=== PATIENT | male | born 1950 | race Hispanic/Latino ===

== ENCOUNTER 2019-07-26 12:59 | Emergency (ER) | payer MEDICARE, OTHER ==
[2019-07-26] MEDS ORDERED: HYDROCODONE/APAP 5/325 MG TAB ONE (14:29)
--- NOTE | 2019-07-26 16:05 | RAD REPORT ---
EXAM DESCRIPTION: RAD - Knee Right 3 View - 07/26/2019 3:12 pm CLINICAL HISTORY: Right knee pain FINDINGS: No fracture or dislocation is seen. Moderate osteoarthritis medial compartment consisting joint space narrowing and osteophytes A moderate to large joint effusion is present. The bones are osteoporotic
--- NOTE | 2019-07-26 16:12 | EDPHYS ---
Physician Documentation [facility] Name: Ruy Lainez Age: 69 yrs Sex: Male : 1950 Arrival Date: 07/26/2019 Time: 13:05 Bed 12 Private MD: ED Physician Eliot Pathak HPI: 07/25 16:11 This 69 yrs old Male presents to ER via Ambulatory with complaints of Right pm1 knee pain. 16:11 The complaints affect the right knee. Context: resulted from arthritis, the patient can pm1 partially bear weight, the patient is able to ambulate. Onset: The symptoms/episode began/occurred chronic pain worse since yesterday. Modifying factors: the symptoms are aggravated by weight bearing. Associated signs and symptoms: Pertinent negatives calf tenderness, fever, numbness, swelling, tingling. Treatment prior to arrival includes: no previous treatment. Severity of symptoms: in the emergency department the symptoms are actually worse. Patient with chronic knee pain and usually gets steroid injections to his knee when he has a flare up of pain. Historical: - Allergies: 13:27 No Known Allergies; ss - Home Meds: 13:27 None [Active]; ss - PMHx: 13:27 None; ss - Immunization history:: Adult Immunizations unknown. - Social history:: Smoking status: Patient denies any tobacco usage or history of. ROS: 16:11 Constitutional: Negative for fever, chills, and weight loss, Cardiovascular: Negative pm1 for chest pain, palpitations, and edema, Respiratory: Negative for shortness of breath, cough, wheezing, and pleuritic chest pain, Abdomen/GI: Negative for abdominal pain, nausea, vomiting, diarrhea, and constipation, Back: Negative for injury and pain. 16:11 Skin: Negative for injury, rash, and discoloration, Neuro: Negative for headache, weakness, numbness, tingling, and seizure. 16:11 MS/extremity: Positive for pain, swelling, of the right knee, Negative for decreased range of motion, deformity. Exam: 16:11 Constitutional: This is a well developed, well nourished patient who is awake, alert, pm1 and in no acute distress. Head/Face: Normocephalic, atraumatic. Neck: Trachea midline, no thyromegaly or masses palpated, and no cervical lymphadenopathy. Supple, full range of motion without nuchal rigidity, or vertebral point tenderness. No Meningismus. Chest/axilla: Normal chest wall appearance and motion. Nontender with no deformity. No lesions are appreciated. 16:11 Skin: Warm, dry with normal turgor. Normal color with no rashes, no lesions, and no evidence of cellulitis. MS/ Extremity: Pulses equal, no cyanosis. Neurovascular intact. Full, normal range of motion. 16:11 Cardiovascular: Exam negative for acute changes, Rate: normal, Rhythm: regular, Pulses: no pulse deficits are appreciated, Edema: is not appreciated. 16:11 Respiratory: Exam negative for acute changes, respiratory distress, shortness of breath. 16:11 Musculoskeletal/extremity: Extremities: grossly normal except: noted in the right knee: pain, swelling, There is no evidence of decreased ROM, deformity, erythema. 16:11 Neuro: Exam negative for acute changes, Orientation: is normal, Mentation: is normal, Motor: is normal, moves all fours. Vital Signs: 13:26 BP 158 / 77; Pulse 58; Resp 18; Temp 97.6; Pulse Ox 97% on R/A; ss MDM: 14:09 Patient medically screened. pm1 16:11 Data reviewed: vital signs. Data interpreted: Pulse oximetry: on room air is 97 %. pm1 Interpretation: normal. Counseling: I had a detailed discussion with the patient and/or guardian regarding: the historical points, exam findings, and any diagnostic results supporting the discharge/admit diagnosis, the need for outpatient follow up, for definitive care, a orthopedic surgeon, to return to the emergency department if symptoms worsen or persist or if there are any questions or concerns that arise at home. 07/25 14:09 Order name: Knee Right 3 View XRAY; Complete Time: 16:11 pm1 07/25 16:11 Order name: Rip wrap-joint; Complete Time: 16:16 pm1 Administered Medications: 14:23 Drug: [place] 5 mg-325 mg 1 tabs Route: PO; ss Disposition: 19:41 Co-signature as Attending Physician, Eliot Pathak MD. mh7 Disposition: 07/26/19 16:12 Discharged to Home. Impression: Pain in right knee. - Condition is Stable. - Discharge Instructions: Joint Pain, Arthritis, Knee Pain. - Prescriptions for Tramadol 50 mg Oral Tablet - take 1 tablet by ORAL route every 8 hours as needed; 12 tablet. - Medication Reconciliation Form, Thank You Letter, Antibiotic Education, Prescription Opioid Use form. - Follow up: Emergency Department; When: As needed; Reason: Worsening of condition. Follow up: Private Physician; When: 2 - 3 days; Reason: Recheck today's complaints, Continuance of care, Re-evaluation by your physician. - Problem is new. - Symptoms have improved. Signatures: Dispatcher [employer] EDMS Sissy Pena RN RN ss Denny Dent NP DOG BOARDER pm1 Eliot Pathak MD MD mh7 Corrections: (The following items were deleted from the chart) 16:18 16:11 The patient presents with pain, pm1 pm1 16:24 16:12 07/26/2019 16:12 Discharged to Home. Impression: Pain in right knee. Condition is ss Stable. Forms are Medication Reconciliation Form, Thank You Letter, Antibiotic Education, Prescription Opioid Use. Follow up: Emergency Department; When: As needed; Reason: Worsening of condition. Follow up: Private Physician; When: 2 - 3 days; Reason: Recheck today's complaints, Continuance of care, Re-evaluation by your physician. Problem is new. Symptoms have improved. pm1
--- NOTE | 2019-07-26 16:12 | ER ---
Nurse's Notes [facility] Name: Ruy Lainez Age: 69 yrs Sex: Male : 1950 Arrival Date: 07/26/2019 Time: 13:05 Bed 12 Private MD: Diagnosis: Pain in right knee Presentation: 07/25 13:26 Chief complaint: Patient states: R knee pain and swelling since yesterday, hx of knee ss problems and has had cortisone injections in the past, denies injury. Coronavirus screen: Patient denies a cough. Patient denies shortness of breath or difficulty breathing. Patient denies measured and/or subjective temperature greater than 100.4F prior to today's visit. Patient denies travel on a cruise ship or to a country the [facility] currently lists as an affected area. Patient denies contact with known and/or suspected case of COVID-19. Ebola Screen: No symptoms or risks identified at this time. Initial Sepsis Screen: Does the patient meet any 2 criteria? No. Patient's initial sepsis screen is negative. Does the patient have a suspected source of infection? No. Patient's initial sepsis screen is negative. Risk Assessment: Do you want to hurt yourself or someone else? Patient reports no desire to harm self or others. Onset of symptoms was July 26, 2019. 13:26 Method Of Arrival: Ambulatory ss 13:26 Acuity: DARRIUS 4 ss Historical: - Allergies: 13:27 No Known Allergies; ss - Home Meds: 13:27 None [Active]; ss - PMHx: 13:27 None; ss - Immunization history:: Adult Immunizations unknown. - Social history:: Smoking status: Patient denies any tobacco usage or history of. Screenin:24 Abuse screen: Denies threats or abuse. Denies injuries from another. Nutritional ph screening: No deficits noted. Tuberculosis screening: No symptoms or risk factors identified. Fall Risk None identified. Assessment: 14:23 General: Appears in no apparent distress. comfortable, well groomed, Behavior is calm, ph cooperative, appropriate for age, Denies fever. Pain: Complains of pain in right knee. Neuro: Level of Consciousness is awake, alert, obeys commands, Oriented to person, place, time, situation. Cardiovascular: Capillary refill < 3 seconds in bilateral fingers Patient's skin is warm and dry. Respiratory: Airway is patent Respiratory effort is even, unlabored. Derm: Skin is intact, is healthy with good turgor, Skin is pink, warm \T\ dry. Musculoskeletal: Circulation, motion, and sensation intact. Range of motion: intact in all extremities, Swelling present in right knee. 16:00 Reassessment: Patient appears in no apparent distress at this time. No changes from previously documented assessment. Vital Signs: 13:26 BP 158 / 77; Pulse 58; Resp 18; Temp 97.6; Pulse Ox 97% on R/A; ss ED Course: 13:05 Patient arrived in ED. mr 13:27 Triage completed. ss 13:27 Arm band placed on Patient placed in waiting room, Patient notified of wait time. ss 13:57 Denny Dent NP is PHCP. pm1 13:57 Eliot Pathak MD is Attending Physician. pm1 14:20 Sissy Pena RN is Primary Nurse. 14:25 Patient has correct armband on for positive identification. Bed in low position. Call ph light in reach. Door closed. Noise minimized. Warm blanket given. 15:12 Knee Right 3 View XRAY In Process Unspecified. EDDE 16:15 TRANSLATE. Rip wrap to right knee. 5 16:21 Patient did not have IV access during this emergency room visit. ss Administered Medications: 14:23 Drug: [place] 5 mg-325 mg 1 tabs Route: PO; Outcome: 16:12 Discharge ordered by . pm1 16:21 Discharged to home ambulatory. 16:21 Condition: good 16:21 Demonstrated understanding of instructions, follow-up care, medications. 16:24 Patient left the ED. Signatures: Dispatcher [employer] EDDE Ragini Balderas Sissy Pena, AVA RN Neelam Trent RN RN Denny Dent NP RUMPER pm1 Denia Bryant [facility]
[2019-07-26 16:30] VITALS: BP 158/77; TEMP 97.6; O2SAT 97
== END 2019-07-26 16:24 | disposition home or self-care (01) ==
LOC: ER 12:59
DX: M25.561 Pain in right knee (principal)
CPT/HCPCS: 99283

== ENCOUNTER 2020-05-14 10:35 | Emergency (ER) | payer OTHER ==
--- OUTSIDE RECORDS SUMMARY | 2020-05-14 10:37 | XMS REPORT | Continuity of Care Document ---
:1950 Author Organization [facility] t Address [address] [place] [address] Care Team Providers Name Role Phone Unavailable Unavailable Unavailable Problems Condition Condition Condition Status Onset Resolution Last Treating Co mments Source Name Details Category Date Date Treatment Clinician Date BMI BMI Problem Active [facility] 31.0-31.9, 31.0-31.9, Kristie kes - adult adult [facility] Primary Primary Diagnosis [facility] osteoarthr osteoarthr Kristie kes - [facility] right knee right knee [facility] Other Other Problem Active [facility] chronic chronic [facility] pain pain [facility] Right knee Right knee Diagnosis Active [facility] pain pain [facility] Allergies, Adverse Reactions, Alerts This patient has no known allergies or adverse reactions. Medications Ordered Filled Start Stop Current Ordering Indication Dosage Frequency Signature Comments Components Source Medication Medication Date Date Medication? Clinician (SIG) Name Name Tylenol Tylenol Yes Rogelio not [facility] Arthritis Arthritis 7-16 Pearl defined Kristie kes - Pain Pain 00:00: Memoria 00 [facility] Tramadol Tramadol Yes Rogelio not [facility] HCl HCl Pearl defined [facility] Suprep Suprep Yes Rogelio not [facility] Bowel Prep Bowel Prep Pearl defined [facility] - Kit Kit [facility] Procedures This patient has no known procedures. Encounters Start End Encounter Admission Attending Care Care Encounter Source Date/Time Date/Time Type Type Clinicians Facility Department ID 2019-10-04 2019-10-04 [facility] [id number] [facility] 09[facility]30[facility]00 09:30[facility]00 [facility] 2019-09-27 2019-09-27 Outpatient Jagruti Marques [id number] [facility] 09:30:00 09:30:00 t [facility] 2019-09-21 2019-09-21 Outpatient Jagruti Marques [id number] [facility] 09:00:00 09:00:00 t [facility] 2019-09-08 2019-09-08 Outpatient Jagruti Marques [id number] [facility] 15:30:00 15:30:00 t [facility] 2019-09-07 2019-09-07 Outpatient Jagruti Marques [id number] [facility] 16:10:00 16:10:00 t [facility] 2019-08-29 2019-08-29 Outpatient Jagruti Marques [id number] [facility] 13:30:00 13:30:00 t [employer] [facility] ent Clinics Results This patient has no known results.
--- NOTE | 2020-05-14 11:06 | EDPHYS ---
Physician Documentation [facility] Name: Ruy Lainez Age: 70 yrs Sex: Male : 1950 Arrival Date: 05/14/2020 Time: 10:38 Bed 15 Private MD: William [facility] ED Physician Murray Gutierrez HPI: 05/14 11:00 This 70 yrs old Male presents to ER via Ambulatory with complaints of neck rn pain. 11:00 The patient or guardian complains of decreased range of motion, pain. The symptoms are rn located on the left neck/posterior. 11:01 Onset: The symptoms/episode began/occurred 3 day(s) ago. Associated signs and symptoms: rn Pertinent negatives: chills, fever, headache, bladder incontinence, bowel incontinence, numbness, tingling, weakness. The pain does not radiate. Modifying factors: The symptoms are alleviated by remaining still, the symptoms are aggravated by movement. Severity of symptoms: At their worst the symptoms were moderate, in the emergency department the symptoms are unchanged. The patient has not experienced similar symptoms in the past. The patient has not recently seen a physician. Historical: - Allergies: 10:52 No Known Allergies; ll1 - PMHx: 10:52 None; ll1 - PSHx: 10:52 colon sx; ll1 - Immunization history:: Flu vaccine is not up to date. - Social history:: Smoking status: Patient denies any tobacco usage or history of. - Family history:: not pertinent. - Hospitalizations: : No recent hospitalization is reported. ROS: 11:01 Constitutional: Negative for fever, chills, and weight loss, Eyes: Negative for injury, rn pain, redness, and discharge, ENT: Negative for injury, pain, and discharge, Neck: Negative for injury, and swelling, Cardiovascular: Negative for chest pain, palpitations, and edema, Respiratory: Negative for shortness of breath, cough, wheezing, and pleuritic chest pain, Abdomen/GI: Negative for abdominal pain, nausea, vomiting, diarrhea, and constipation, Back: Negative for injury and pain, MS/Extremity: Negative for injury and deformity, Skin: Negative for injury, rash, and discoloration, Neuro: Negative for headache, weakness, numbness, tingling, and seizure. Exam: 11:01 Constitutional: This is a well developed, well nourished patient who is awake, alert, rn and in no acute distress. Head/Face: Normocephalic, atraumatic. Eyes: Pupils equal round and reactive to light Neck: Trachea midline, no masses palpated, and no cervical lymphadenopathy. equal carotid pulses bilaterally. + pain with turning head left, tenderness along left SCM, no crepitus, no skin changes. Cardiovascular: Regular rate and rhythm. No pulse deficits. Respiratory: No increased work of breathing, no retractions or nasal flaring. Abdomen/GI: soft, non-tender Skin: Warm, dry, no rashes MS/ Extremity: Pulses equal, no cyanosis. Neurovascular intact. Full, normal range of motion. Equal circumference. Neuro: Awake and alert, GCS 15, oriented to person, place, time, and situation. Cranial nerves II-XII grossly intact. Motor strength 5/5 in all extremities. Sensory grossly intact. Cerebellar exam normal. Normal gait. Vital Signs: 10:50 BP 167 / 94; Pulse 64; Resp 17; Temp 98.1; Pulse Ox 97% on R/A; Pain 8/10; ll1 MDM: 10:53 Patient medically screened. rn 11:01 Differential diagnosis: arthritis, Cervical Raiculopathy cervical strain, torticollis. rn Data reviewed: vital signs, nurses notes, and as a result, I will discharge patient. Counseling: I had a detailed discussion with the patient and/or guardian regarding: the historical points, exam findings, and any diagnostic results supporting the discharge/admit diagnosis, the need for outpatient follow up, to return to the emergency department if symptoms worsen or persist or if there are any questions or concerns that arise at home. Special discussion: I discussed with the patient/guardian in detail that at this point there is no indication for admission to the hospital. It is understood, however, that if the symptoms persist or worsen the patient needs to return immediately for re-evaluation. ED course: Normal neuro exam, no chest pain, no radiation, seems muscular in nature, afebrile, will dc home with muscle relaxer and steroids, with return precautions. . Administered Medications: Drug: TORadol - Ketorolac 15 mg Route: IM; Site: right deltoid; 11:29 Follow up: Response: No adverse reaction jl7 11:18 Drug: Decadron 10 mg Route: IM; Site: left deltoid; jl7 11:29 Follow up: Response: No adverse reaction jl7 Disposition: 05/14/20 11:06 Discharged to Home. Impression: Torticollis, Muscle spasm. - Condition is Stable. - Discharge Instructions: Muscle Cramps and Spasms, Acute Torticollis, Adult. - Prescriptions for Cyclobenzaprine 10 mg Oral Tablet - take 1 tablet by ORAL route every 8 hours As needed; 15 tablet. Medrol ([place]) 4 mg Oral Tablets, Dose Pack - take 1 tablet by ORAL route as directed - follow package instructions; 1 packet. - Medication Reconciliation Form, Thank You Letter, Antibiotic Education, Prescription Opioid Use form. - Follow up: Private Physician; When: As needed; Reason: Recheck today's complaints, Re-evaluation by your physician. - Problem is new. - Symptoms have improved. Signatures: Murray Gutierrez MD MD rn Leal, AVA Vides RN jl7 Gail Parra RN RN ll1 Corrections: (The following items were deleted from the chart) 11:05 11:01 Constitutional: This is a well developed, well nourished patient who is awake, rn alert, and in no acute distress. Head/Face: Normocephalic, atraumatic. Eyes: Pupils equal round and reactive to light Neck: Trachea midline, no masses palpated, and no cervical lymphadenopathy. + pain with turning head left, tenderness along left SCM, no crepitus, no skin changes. Cardiovascular: Regular rate and rhythm. No pulse deficits. Respiratory: No increased work of breathing, no retractions or nasal flaring. Abdomen/GI: soft, non-tender Skin: Warm, dry, no rashes MS/ Extremity: Pulses equal, no cyanosis. Neurovascular intact. Full, normal range of motion. Equal circumference. Neuro: Awake and alert, GCS 15, oriented to person, place, time, and situation. Cranial nerves II-XII grossly intact. Motor strength 5/5 in all extremities. Sensory grossly intact. Cerebellar exam normal. Normal gait. rn 11:29 11:06 05/14/2020 11:06 Discharged to Home. Impression: Torticollis; Muscle spasm. jl7 Condition is Stable. Forms are Medication Reconciliation Form, Thank You Letter, Antibiotic Education, Prescription Opioid Use. Follow up: Private Physician; When: As needed; Reason: Recheck today's complaints, Re-evaluation by your physician. Problem is new. Symptoms have improved. rn
--- NOTE | 2020-05-14 11:06 | ER ---
Nurse's Notes [facility] Name: Ruy Lainez Age: 70 yrs Sex: Male : 1950 Arrival Date: 05/14/2020 Time: 10:38 Bed 15 Private MD: Riaz Thomas Diagnosis: Torticollis;Muscle spasm Presentation: 05/14 10:50 Chief complaint: Patient states: L sided neck pain and CELAYA for 3 days. Pain increases to ll1 neck area with certain movements. No trauma or falls. No fever or cough. Coronavirus screen: Client denies travel out of the [place] in the last 14 days. At this time, the client does not indicate any symptoms associated with coronavirus-19. Ebola Screen: Patient denies travel to an Ebola-affected area in the 21 days before illness onset. Initial Sepsis Screen: Does the patient meet any 2 criteria? No. Patient's initial sepsis screen is negative. Does the patient have a suspected source of infection? Yes: Other: CELAYA/neck pain. Risk Assessment: Do you want to hurt yourself or someone else? Patient reports no desire to harm self or others. Onset of symptoms was May 12, 2020. 10:50 Method Of Arrival: Ambulatory ll1 10:50 Acuity: DARRIUS 3 ll1 Historical: - Allergies: 10:52 No Known Allergies; ll1 - PMHx: 10:52 None; ll1 - PSHx: 10:52 colon sx; ll1 - Immunization history:: Flu vaccine is not up to date. - Social history:: Smoking status: Patient denies any tobacco usage or history of. - Family history:: not pertinent. - Hospitalizations: : No recent hospitalization is reported. Screenin:20 Abuse screen: Denies threats or abuse. Denies injuries from another. Nutritional jl7 screening: No deficits noted. Tuberculosis screening: No symptoms or risk factors identified. Fall Risk None identified. Assessment: 11:15 General: Appears in no apparent distress. uncomfortable, Behavior is calm, cooperative, jl7 appropriate for age. Pain: Complains of pain in CELAYA and neck Pain currently is 8 out of 10 on a pain scale. Neuro: Level of Consciousness is awake, alert, obeys commands. Cardiovascular: Patient's skin is warm and dry. Respiratory: Airway is patent Respiratory effort is even, unlabored, Respiratory pattern is regular, symmetrical. Derm: Skin is pink, warm \T\ dry. 11:20 Reassessment: Pt will be discharged after shot time. jl7 Vital Signs: 10:50 BP 167 / 94; Pulse 64; Resp 17; Temp 98.1; Pulse Ox 97% on R/A; Pain 8/10; ll1 ED Course: 10:38 Patient arrived in ED. mr 10:39 Riaz Thomas DO is Private Physician. mr 10:49 Arm band placed on Patient placed in an exam room, on a stretcher. ll1 10:52 Triage completed. ll1 10:53 Murray Gutierrez MD is Attending Physician. rn 11:00 Peewee Phipps RN is Primary Nurse. jl7 11:20 Patient has correct armband on for positive identification. Bed in low position. Call jl7 light in reach. Side rails up X 1. 11:20 No provider procedures requiring assistance completed. Patient did not have IV access jl7 during this emergency room visit. Administered Medications: 11:18 Drug: TORadol - Ketorolac 15 mg Route: IM; Site: right deltoid; jl7 11:29 Follow up: Response: No adverse reaction jl7 11:18 Drug: Decadron 10 mg Route: IM; Site: left deltoid; jl7 11:29 Follow up: Response: No adverse reaction jl7 Outcome: 11:06 Discharge ordered by . rn 11:28 Discharged to home ambulatory. jl7 11:28 Condition: stable 11:28 Discharge instructions given to patient, Instructed on discharge instructions, follow up and referral plans. medication usage, Demonstrated understanding of instructions, follow-up care, medications, Prescriptions given X 2. 11:29 Patient left the ED. jl7 Signatures: Ragini Balderas Murray Gutierrez MD MD rn Leal, Jahala, RN RN jl7 Gail Parra RN RN ll1
[2020-05-14] MEDS ORDERED: dexAMETHasone 10 MG/ML VIAL ONE (11:19)
[2020-05-14] MEDS ORDERED: KETOROLAC 30 MG/ML INJ ONE (11:20)
[2020-05-14 11:34] VITALS: BP 167/94; TEMP 98.1; O2SAT 97
== END 2020-05-14 11:29 | disposition home or self-care (01) ==
LOC: ER 10:35
DX: M43.6 Torticollis (principal); M62.838 Other muscle spasm
CPT/HCPCS: 96372; 99283; J1100

== ENCOUNTER 2020-10-10 08:43 | Emergency (ER) | payer OTHER ==
--- OUTSIDE RECORDS SUMMARY | 2020-10-10 08:45 | XMS REPORT | Continuity of Care Document ---
:[address] [facility] t Address [address] [place] [address] Care Team Providers Name Role Phone Unavailable Unavailable Unavailable Problems This patient has no known problems. Allergies, Adverse Reactions, Alerts This patient has no known allergies or adverse reactions. Medications Ordered Filled Start Stop Current Ordering Indication Dosage Frequency Signature Comments Components Source Medication Medication Date Date Medication? Clinician (SIG) Name Name Tylenol Tylenol Yes Rogelio not [facility] Arthritis Arthritis 7-16 Pearl defined Kristie kes - [facility] Tramadol Tramadol Yes Rogelio not [facility] HCl HCl [facility] defined [facility] Suprep Suprep Yes Rogelio not [facility] Bowel Prep Bowel Prep Pearl defined [facility] Procedures This patient has no known procedures. Encounters Start End Encounter Admission Attending Care Care Encounter Source Date/Time Date/Time Type Type Clinicians Facility Department ID 2020-09-17 2020-09-17 Outpatient [facility] [id number] [facility] 2020-06-18 2020-06-18 Outpatient [facility] [id number] [facility] 2020-06-18 2020-06-18 Outpatient [facility] [id number] [facility] 2020-06-18 2020-06-18 Outpatient [facility] [id number] [facility] 2020-06-06 2020-06-06 Outpatient [facility] [id number] [facility] 2019-10-04 2019-10-04 [facility] [id number] [facility] 09:30:00 09:30:00 [facility] 2019-09-27 2019-09-27 [facility] [id number] [facility] 09:30:00 09:30:00 [facility] 2019-09-21 2019-09-21 [facility] [id number] [facility] 09:00:00 09:00:00 [facility] 2019-09-08 2019-09-08 [facility] [id number] [facility] 15:30:00 15:30:00 [facility] 2019-09-07 2019-09-07 [facility] [id number] [facility] 16:10:00 16:10:00 [facility] 2019-08-29 2019-08-29 [facility] [id number] [facility] 13:30:00 13:30:00 t [facility] Clinics Results This patient has no known results.
--- NOTE | 2020-10-10 10:13 | RAD REPORT ---
EXAM DESCRIPTION: US - Abdomen Exam Limited - 10/10/2020 10:02 am CLINICAL HISTORY: RUQ abd pain COMPARISON: No comparisons FINDINGS: The gallbladder demonstrates no gallstones. No pericholecystic fluid or gallbladder wall t hickening. The common bile duct is normal measuring 5 millimeter. The liver demonstrates no findings of intrahepatic biliary dilatation. IMPRESSION: Negative for cholelithiasis or acute cholecystitis.
--- NOTE | 2020-10-10 12:08 | RAD REPORT ---
EXAM DESCRIPTION: CT - Abdomen Pelvis Wo Contrast - 10/10/2020 11:58 am CLINICAL HISTORY: Abdominal pain. RUQ pain COMPARISON: Abdomen Exam Limited dated 10/10/2020 TECHNIQUE: CT imaging of the abdomen and pelvis was performed without contrast. Solid organ, bowel a nd vascular assessment is limited due to lack of IV and oral contrast. All CT scans are performed using dose optimization technique as appropriate and may include automated exposure control or mA/KV adjustment according to patient size. FINDINGS: The lower lung hills are clear. The liver, spleen, pancreas, adrenal glands and kidneys are within normal limits for a limited non-co ntrast examination. No bowel obstruction, free air, free fluid or abscess. Appendix not identified. Moderate stool in th e colon. The osseous structures are within normal limits. IMPRESSION: No acute intra-abdominal or pelvic findings. A limited non-contrast examination was performed as detailed.
[2020-10-10] MEDS ORDERED: MAGNES/ALUMIN/SIMET 30ML UCUP ONE (12:57)
[2020-10-10] MEDS ORDERED: LIDOCAINE VISCOUS 2% SOLN 15 ML UDC ONE (12:57)
[2020-10-10 13:22] LABS: Absolute Lymphocytes (CBC) 2.9 K/uL (0.7-4.9); Basophils % 1.4 % (0-1.3); Hematocrit 41.4 % (39.6-49.0); Lymphocytes % 39.1 % (15.3-44.8); MPV 10.3 fL (7.6-11.3); RBC Red Blood Cell Count 4.42 M/uL (4.33-5.43)
[2020-10-10 13:47] LABS: ALT/SGPT 35 U/L (12-78); AST/SGOT 21 U/L (15-37); Alkaline Phosphatase 112 U/L (45-117); BUN Blood Urea Nitrogen 19 mg/dL (7-18); Bicarbonate 28 mmol/L (21-32); Bilirubin Direct 0.1 mg/dL (0-0.2); Bilirubin Total 0.4 mg/dL (0.2-1.0); Glucose Level 103 mg/dL (74-106); Lipase 60 U/L (73-393); Potassium 4.3 mmol/L (3.5-5.1); Protein, Total 7.6 g/dL (6.4-8.2); Sodium Level 140 mmol/L (136-145)
--- NOTE | 2020-10-10 14:19 | ER ---
Nurse's Notes [facility] Name: Ruy Lainez Age: 70 yrs Sex: Male : 1950 Arrival Date: 10/10/2020 Time: 08:48 Bed Treatment Private MD: Riaz Thomas Diagnosis: Abdominal pain, unspecified Presentation: 10/10 09:08 Chief complaint: Patient states: RUQ pain that began last night. Denies N/V/D. ss Coronavirus screen: Client denies travel out of the [place] in the last 14 days. Ebola Screen: Patient denies exposure to infectious person. Patient denies travel to an Ebola-affected area in the 21 days before illness onset. Initial Sepsis Screen: Does the patient meet any 2 criteria? No. Patient's initial sepsis screen is negative. Does the patient have a suspected source of infection? No. Patient's initial sepsis screen is negative. Risk Assessment: Do you want to hurt yourself or someone else? Patient reports no desire to harm self or others. Onset of symptoms was October 09, 2020. 09:08 Method Of Arrival: Ambulatory 09:08 Acuity: DARRIUS 3 ss Historical: - Allergies: 09:10 No Known Allergies; ss - PMHx: 09:10 High cholesterol; ss - PSHx: 09:10 None; ss - Immunization history:: Adult Immunizations up to date, Client reports receiving the 2nd dose of the Covid vaccine. - Social history:: Smoking status: Patient denies any tobacco usage or history of. - Family history:: not pertinent. - Hospitalizations: : No recent hospitalization is reported. Screenin:16 Abuse screen: Denies threats or abuse. Denies injuries from another. Nutritional iw screening: No deficits noted. Tuberculosis screening: No symptoms or risk factors identified. Fall Risk None identified. Assessment: 11:46 Reassessment: pt transferred to PA via wheelchair. tr6 Vital Signs: 09:08 BP 156 / 83; Pulse 50; Resp 16; Temp 97.6(TE); Pulse Ox 96% on R/A; Weight 72.57 kg; ss Height 5 ft. 6 in. (167.64 cm); Pain 9/10; 09:08 Body Mass Index 25.82 (72.57 kg, 167.64 cm) ED Course: 08:48 Patient arrived in ED. mr 08:48 Riaz Thomas DO is Private Physician. mr 09:10 Triage completed. ss 09:10 Arm band placed on left wrist. ss 10:02 US Abdomen Limited In Process Unspecified. EDMS 11:46 Murray Gutierrez MD is Attending Physician. rn 11:58 CT Abd/Pelvis - Without Contrast In Process Unspecified. EDMS 12:39 Brooklynn Yadav, RN is Primary Nurse. iw 13:16 Initial lab(s) drawn, by me, sent to lab. Inserted saline lock: 20 gauge in right iw antecubital area, using aseptic technique. Blood collected. 14:18 Herbert Slater MD is Referral Physician. rn Administered Medications: 12:36 Drug: GI Cocktail without - (Maalox Suspension 30 ml, Lidocaine Liquid 2 % 15 iw ml) Route: PO; Outcome: 14:18 Discharge ordered by . rn 14:39 Patient left the ED. iw Signatures: Dispatcher [employer] EDWA Ragini Balderas mr Brooklynn Yadav, RN RN Murray Gutierrez MD MD rn Smirch, Shelby, RN RN Barbie Morataya RN RN tr6
--- NOTE | 2020-10-10 14:20 | EDPHYS ---
Physician Documentation [facility] Name: Ruy Lainez Age: 70 yrs Sex: Male : 1950 Arrival Date: 10/10/2020 Time: 08:48 Bed Treatment Private MD: William Counts Include 234 Beds At [facility] ED Physician Murray Gutierrez HPI: 10/10 12:13 This 70 yrs old Male presents to ER via Ambulatory with complaints of rn Abdominal Pain. 12:13 The patient presents with abdominal pain in the right upper quadrant. Onset: The rn symptoms/episode began/occurred last night. The symptoms do not radiate. Associated signs and symptoms: Pertinent negatives: nausea and vomiting, anorexia, blood in stools, chest pain, constipation, diarrhea, dysuria, fever, headache, hematuria, nausea, shortness of breath, testicular pain, vomiting, vomiting blood. The symptoms are described as achy, crampy. Modifying factors: The symptoms are alleviated by nothing, the symptoms are aggravated by food. Severity of pain: At its worst the pain was moderate in the emergency department the pain is unchanged. The patient has not experienced similar symptoms in the past. The patient has not recently seen a physician. Reports began with right upper quadrant abdominal pain last night, no fever, no vomiting or diarrhea. Reports happened shortly after a glass of milk and a donut. No blood in stool or dark stool.. Historical: - Allergies: 09:10 No Known Allergies; ss - PMHx: 09:10 High cholesterol; ss - PSHx: 09:10 None; ss - Immunization history:: Adult Immunizations up to date, Client reports receiving the 2nd dose of the Covid vaccine. - Social history:: Smoking status: Patient denies any tobacco usage or history of. - Family history:: not pertinent. - Hospitalizations: : No recent hospitalization is reported. ROS: 12:13 Constitutional: Negative for fever, chills, and weight loss, Eyes: Negative for injury, rn pain, redness, and discharge, Neck: Negative for injury, pain, and swelling, Cardiovascular: Negative for chest pain, palpitations, and edema, Respiratory: Negative for shortness of breath, cough, wheezing, and pleuritic chest pain, Abdomen/GI: Negative for nausea, vomiting, diarrhea, and constipation, Back: Negative for injury and pain, : Negative for injury, bleeding, discharge, and swelling, MS/Extremity: Negative for injury and deformity, Skin: Negative for injury, rash, and discoloration, Neuro: Negative for headache, weakness, numbness, tingling, and seizure. 12:13 All other systems are negative. Exam: 12:13 Constitutional: This is a well developed, well nourished patient who is awake, alert, rn and in no acute distress. Head/Face: Normocephalic, atraumatic. Eyes: Periorbital areas with no swelling, redness, or edema. Cardiovascular: bradycardic, regular. No pulse deficits. Respiratory: No increased work of breathing, no retractions or nasal flaring. Abdomen/GI: Soft, mild right upper quadrant tenderness. No rebound. Negative Diaz Skin: Warm, dry MS/ Extremity: Pulses equal, no cyanosis. Neuro: Awake and alert, GCS 15, oriented to person, place, time, and situation. Cranial nerves II-XII grossly intact. Motor strength 5/5 in all extremities. Sensory grossly intact. Cerebellar exam normal. 14:16 ECG was reviewed by the Attending Physician. rn Vital Signs: 09:08 BP 156 / 83; Pulse 50; Resp 16; Temp 97.6(TE); Pulse Ox 96% on R/A; Weight 72.57 kg; ss Height 5 ft. 6 in. (167.64 cm); Pain 9/10; 09:08 Body Mass Index 25.82 (72.57 kg, 167.64 cm) ss MDM: 11:46 Patient medically screened. rn 14:16 Differential diagnosis: bowel obstruction, cholecystitis, Cholelithiasis, rn diverticulitis, gastritis, gastroesophageal reflux disease, myocardia ischemia or infarction, non-specific abd pain, pancreatitis, Peptic Ulcer Disease, Perf. Duodenal Ulcer, Perf. Gastric Ulcer. Data reviewed: vital signs, nurses notes, lab test result(s), radiologic studies, CT scan, ultrasound, and as a result, I will discharge patient. Counseling: I had a detailed discussion with the patient and/or guardian regarding: the historical points, exam findings, and any diagnostic results supporting the discharge/admit diagnosis, radiology results, the need for outpatient follow up, to return to the emergency department if symptoms worsen or persist or if there are any questions or concerns that arise at home. Response to treatment: the patient's symptoms have mildly improved after treatment, and as a result, I will discharge patient. Special discussion: Based on the patient's Hx, exam, and Dx evaluation, there is no indication for emergent surgery or inpatient Tx. It is understood by the patient/guardian that if the Sx's persist or worsen they need to return immediately for re-evaluation. I discussed with the patient/guardian in detail that at this point there is no indication for admission to the hospital. It is understood, however, that if the symptoms persist or worsen the patient needs to return immediately for re-evaluation. ED course: No acute findings on ultrasound or CT scan of abdomen. No acute findings and blood work. EKG sinus bradycardia but no ischemia. Improved with GI cocktail. Will DC home with antacids and return precautions as no definitive cause of abdominal pain found.. 10/10 12:10 Order name: Basic Metabolic Panel; Complete Time: 13:48 rn 10/10 12:10 Order name: CBC with Diff; Complete Time: 13:46 rn 10/10 09:46 Order name: US Abdomen Limited; Complete Time: 11:35 rn 10/10 11:36 Order name: CT Abd/Pelvis - Without Contrast; Complete Time: 12:10 rn 10/10 12:10 Order name: Hepatic Function; Complete Time: 13:48 rn 10/10 12:10 Order name: Lipase; Complete Time: 13:48 rn 10/10 12:10 Order name: IV Saline Lock; Complete Time: 12:36 rn 10/10 12:10 Order name: Labs collected and sent; Complete Time: 12:36 rn 10/10 12:16 Order name: EKG; Complete Time: 12:16 rn 10/10 12:16 Order name: EKG - Nurse/Tech; Complete Time: 12:50 rn EC:16 Rate is 48 beats/min. Rhythm is regular. QRS [place] is Normal. [place] interval is normal. QRS rn interval is normal. QT interval is normal. No Q waves. T waves are Normal. No ST changes noted. Clinical impression: Sinus bradycardia. Interpreted by me. Reviewed by me. Administered Medications: 12:36 Drug: GI Cocktail without - (Maalox Suspension 30 ml, Lidocaine Liquid 2 % 15 iw ml) Route: PO; Disposition Summary: 10/10/20 14:18 Discharge Ordered Location: Home rn Problem: new rn Symptoms: have improved rn Condition: Stable rn Diagnosis - Abdominal pain, unspecified rn Followup: rn - With: Herbert Slater MD - When: 2 - 3 days - Reason: Recheck today's complaints, Re-evaluation by your physician Discharge Instructions: - Discharge Summary Sheet rn - Abdominal Pain, Adult rn - Pain Without a Known Cause rn Forms: - Medication Reconciliation Form rn - Thank You Letter rn - Antibiotic supervisor international reservations - Prescription Opioid Use rn Prescriptions: - Pepcid 20 mg Oral Tablet - take 1 tablet by ORAL route every 12 hours for 1 month; 60 tablet; Refills: 0, rn Product Selection Permitted Signatures: Dispatcher [employer] Brooklynn Bailon RN RN iw Nieto, Roman, MD MD rn Smirch, Shelby, RN RN ss
[2020-10-10 14:51] VITALS: BP 156/83; TEMP 97.6; O2SAT 96
--- NOTE | 2020-10-10 16:24 | EKG ---
Test Date: 2020-10-10 Test Time: 12:45:14 Solutions Engineer: MANDA MEASUREMENT RESULTS: Intervals: Rate: 47 RI: 170 QRSD: 86 QT: 478 QTc: 423 [place]: P: 18 RI: 170 QRS: 70 T: 79 INTERPRETIVE STATEMENTS: Marked sinus bradycardia Abnormal ECG No previous ECG available for comparison Electronically Signed On 10-10-20 16:22:45 CDT by Henrique Martínez
--- NOTE | 2020-10-11 08:31 | EKG ---
Test Date: 2020-10-10 Test Time: 14:16:40 Tongue Presser: ALEXA MEASUREMENT RESULTS: Intervals: Rate: 48 MS: 166 QRSD: 80 QT: 464 QTc: 414 [place]: P: 47 MS: 166 QRS: 43 T: 79 INTERPRETIVE STATEMENTS: Marked sinus bradycardia Abnormal ECG Compared to ECG 10/10/2020 12:45:14 No significant changes Electronically Signed On 10-11-20 08:29:34 CDT by Henrique Martínez
== END 2020-10-10 14:39 | disposition home or self-care (01) ==
LOC: ER 08:43
DX: R10.11 Right upper quadrant pain (principal)
CPT/HCPCS: 36415; 74176; 76705; 80048; 80076; 83690; 85025; 93005; 99284